=== PATIENT | female | born 1965 | race Caucasian/White ===

== ENCOUNTER 2016-08-18 12:52 | Emergency (ER) | payer MEDICARE, OTHER | END 2016-08-18 14:45 | disposition home or self-care (01) | LOC: FER 12:52 | DX: K04.7 Periapical abscess without sinus (principal); J44.9 Chronic obstructive pulmonary disease, unspecified; E03.9 Hypothyroidism, unspecified; Z88.0 Allergy status to penicillin; Z88.1 Allergy status to other antibiotic agents; Z88.5 Allergy status to narcotic agent; Z88.8 Allergy status to other drugs, medicaments and biological substances | CPT/HCPCS: 99282 ==

== ENCOUNTER 2021-02-15 10:29 | Emergency (ER) | payer MEDICARE, OTHER ==
[~2021-02-15] VITALS: Ht 172.7 cm; Wt 99.8 kg
[2021-02-15 11:26] LABS: BASOPHIL 0.3 % (0-2); EOSINOPHIL 1.8 % (0-5); HCT 44.1 % (37.0-47.0); HGB 14.5 g/dl (12.5-16.0); MCH 30.5 pg (25.0-31.0); MCHC 32.9 g/dL (32.0-36.0); MCV 92.6 fL (78.0-100.0); MONOCYTE 5.3 % (0-12); MPV 9.3 fL (6.0-9.5); NEUTROPHIL 65.2 % (41-80); NRBC 0; PLT 327 K/uL (150-400); RBC 4.76 M/uL (4.20-5.40); RDW 13.8 % (11.5-14.0); WBC 9.1 K/uL (4.0-10.5)
[2021-02-15 11:34] LABS: BILIRUBIN NEGATIVE (NEGATIVE); BLOOD NEGATIVE Ery/uL (NEGATIVE); CLARITY CLEAR (CLEAR); COLOR YELLOW (YELLOW); GLUCOSE (U) NORMAL (NORMAL); LEUKOCYTES TRACE Leu/uL (NEGATIVE); NITRITE NEGATIVE (NEGATIVE); PROTEIN NEGATIVE (NEGATIVE); UROBILINOGEN 0.2 mg/dL (0.2-1.0)
[2021-02-15 11:51] LABS: ALBUMIN 3.4 g/dL (3.4-5.0); BILIRUBIN - TOTAL 0.3 mg/dL (0.2-1.0); BUN/CREAT RATIO (CALC) 13.4 RATIO; CREATININE 0.82 mg/dL (0.51-0.95); GLOBULIN (CALCULATION) 3.6 g/dL; POTASSIUM 3.7 mmol/L (3.5-5.1)
[2021-02-15 11:59] LABS: AMORPHOUS URATES CRYSTALS TRACE; BACTERIA 3+; SQUAMOUS EPITHELIAL CELLS 20-50
[2021-02-15] MEDS ORDERED: BACTRIM DS TAB1 EACH PO (14:41)
[2021-02-15] MEDS ORDERED: REGLAN10 MG PO (14:41)
== END 2021-02-15 15:02 | disposition home or self-care (01) ==
LOC: FER 10:29
PROVIDERS: Internal Medicine
DX: N39.0 Urinary tract infection, site not specified (principal); R00.0 Tachycardia, unspecified; E11.9 Type 2 diabetes mellitus without complications; F17.210 Nicotine dependence, cigarettes, uncomplicated; Z85.028 Personal history of other malignant neoplasm of stomach; Z90.710 Acquired absence of both cervix and uterus; Z90.49 Acquired absence of other specified parts of digestive tract; Z90.09 Acquired absence of other part of head and neck; Z88.0 Allergy status to penicillin; Z88.1 Allergy status to other antibiotic agents; Z88.8 Allergy status to other drugs, medicaments and biological substances
CPT/HCPCS: 36415; 80053; 81001; 82009; 83690; 84484; 85025; 93005; J1170; J2405; J3010; J7030; Q9967

== ENCOUNTER → 2021-04-09 | Day surgery (SDC) | payer MEDICARE ==
[~2021-04-09] VITALS: Ht 172.7 cm; Wt 99.8 kg
[~2021-04-09] MED LIST: AMARYL2 MG PO; BACTRIM DS TAB1 EACH PO; CYMBALTA 30MG C30 MG PO; NEURONTIN300 MG PO; OZEMPIC0.25 MG/0. SC; PHENERGAN25 M1 PO; PROTONIX 40MG T40 MG PO; REGLAN10 MG PO; REQUIP1 MG PO; SPIRIVA 185 PUFFS/IN INH; SYMBICORT 80-10.2 GM INH; SYNTHROID75 MCG PO; TRAZODONE HCL150 MG PO; TRESIBA100 UNIT/1 PO
== END | disposition home or self-care (01) ==
LOC: FAS 07:55
DX: Z12.11 Encounter for screening for malignant neoplasm of colon (principal); D12.3 Benign neoplasm of transverse colon; K29.50 Unspecified chronic gastritis without bleeding; K31.9 Disease of stomach and duodenum, unspecified; K44.9 Diaphragmatic hernia without obstruction or gangrene; K20.80 Other esophagitis without bleeding; F17.200 Nicotine dependence, unspecified, uncomplicated; J45.909 Unspecified asthma, uncomplicated; E11.9 Type 2 diabetes mellitus without complications; E03.9 Hypothyroidism, unspecified; Z79.4 Long term (current) use of insulin; Z88.1 Allergy status to other antibiotic agents; Z88.8 Allergy status to other drugs, medicaments and biological substances; Z88.0 Allergy status to penicillin; Z79.899 Other long term (current) drug therapy; Z90.49 Acquired absence of other specified parts of digestive tract; Z90.710 Acquired absence of both cervix and uterus; Z80.1 Family history of malignant neoplasm of trachea, bronchus and lung
CPT/HCPCS: 36415; 83036; J2250; J2704; J7120

== ENCOUNTER 2021-05-23 11:05 | Emergency (ER) | payer MEDICARE | END 2021-05-23 13:11 | disposition home or self-care (01) | LOC: FER 11:05 | DX: S52.92XA Unspecified fracture of left forearm, initial encounter for closed fracture (principal); S00.83XA Contusion of other part of head, initial encounter; F17.200 Nicotine dependence, unspecified, uncomplicated; E11.9 Type 2 diabetes mellitus without complications; Z23 Encounter for immunization; Z88.0 Allergy status to penicillin; Z88.1 Allergy status to other antibiotic agents; Z88.8 Allergy status to other drugs, medicaments and biological substances; Y04.0XXA Assault by unarmed brawl or fight, initial encounter; Y92.009 Unspecified place in unspecified non-institutional (private) residence as the place of occurrence of the external cause | CPT/HCPCS: 70450; 73100; 73130; 90471; 90715 ==

== ENCOUNTER → 2022-01-02 | Day surgery (SDC) | payer MEDICARE ==
[~2022-01-02] VITALS: Ht 172.7 cm; Wt 99.8 kg
[2022-01-02 10:04] LABS: HCT 42.8 % (37.0-47.0); HGB 14.4 g/dl (12.5-16.0); MCH 31.4 pg (25.0-31.0); MCHC 33.6 g/dL (32.0-36.0); MCV 93.2 fL (78.0-100.0); RBC 4.59 M/uL (4.20-5.40); RDW 13.6 % (11.5-14.0); WBC 8.9 K/uL (4.0-10.5)
[2022-01-02 10:25] LABS: ALBUMIN 3.7 g/dL (3.4-5.0); BILIRUBIN - TOTAL 0.4 mg/dL (0.2-1.0); BUN/CREAT RATIO (CALC) 11.7 RATIO; CREATININE 0.94 mg/dL (0.51-0.95); GLOBULIN (CALCULATION) 3.2 g/dL; POTASSIUM 3.9 mmol/L (3.5-5.1); TOTAL PROTEIN 6.9 g/dL (6.4-8.2)
== END | disposition home or self-care (01) ==
LOC: FAS 09:24
PROVIDERS: Surgery
DX: K21.00 Gastro-esophageal reflux disease with esophagitis, without bleeding (principal); K31.9 Disease of stomach and duodenum, unspecified; K29.70 Gastritis, unspecified, without bleeding; J45.909 Unspecified asthma, uncomplicated; E11.9 Type 2 diabetes mellitus without complications; E03.9 Hypothyroidism, unspecified; Z86.010 Personal history of colon polyps; Z88.0 Allergy status to penicillin; Z88.1 Allergy status to other antibiotic agents; Z88.8 Allergy status to other drugs, medicaments and biological substances
CPT/HCPCS: 36415; 80053; J2250; J2704; J7120